=== PATIENT | male | born 1980 | race Two or more races ===

== ENCOUNTER 2018-06-20 17:27 | Emergency (ER) | payer BC ==
[~2018-06-20 17:27] MED LIST: AUG500 PO; CEP500 PO; FAM20 PO; HYDR-653 PO; IBU600 PO; LOR5 PO; LOR5/325 PO
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
[2018-06-20] MEDS ORDERED: NS(*) 0.9% 1000 ML BAG 1,000 ML IV ONE (17:52)
[2018-06-20] MEDS ORDERED: KETOROLAC 30 MG/ML VIAL IVP ONE (17:55)
[2018-06-20 18:18] LABS: PLATELET COUNT, AUTOMATED 208 K/uL (150-450)
[2018-06-20] MEDS ORDERED: IOPAMIDOL 76% 150 ML INFUS BTL 150 ML ONE (18:34)
--- NOTE | 2018-06-20 19:00 | RADIOLOGY IMAGING REPORT ---
FACILITY: [facility] - [place] PATIENT NAME: Ronn Ruby : 1980 MR: [id number] V: [id number] EXAM DATE: ORDERING PHYSICIAN: MARIANO BENITEZ [place]CHNOLOG[place]: [place] [facility] [place]n [place] : 1980 Visit/Account:[id number] Date of Sevice: 06/20/2018 EXAMINATION: CT abdomen and pelvis with IV contrast HISTORY: Left-sided abdominal pain. TECHNIQUE: Axial CT images of the abdomen and pelvis were obtained with IV contrast, with coronal a nd sagittal 2D reconstructed images. One of the following dose optimization techniques was utilized in the performance of this exam: Autom ated exposure control; adjustment of the mA and/or kV according to the patient's size; or use of an i terative reconstruction technique. Specific details can be referenced in the facility's radiology C T exam operational policy. Contrast: 75 mL of IV [id number]. COMPARISON: None. FINDINGS: Liver: Negative. Gallbladder and bile ducts: Negative. Spleen: Negative. Pancreas: Negative. Adrenal glands: Negative. Kidneys: Negative. No hydronephrosis or urinary calculi. Bowel and peritoneum: The small bowel and colon are normal in caliber, without evidence of obstructi on or any focal inflammatory process. Normal appendix. No free fluid or free intraperitoneal air. Pelvic structures: Negative. Lymph node assessment: Negative. Vessels: Negative. Musculoskeletal: Negative. Body wall: Negative. Lung bases: Negative. IMPRESSION: No CT evidence of acute intra-abdominal pathology. No specific source of abdominal pain is identified . Report Dictated By: Diogo Gordon MD at 06/20/2018 6:51 PM Report E-Signed By: Diogo Gordon MD at 06/20/2018 6:56 PM WSN:[id number]
[2018-06-20 19:30] VITALS: BP 112/79
[2018-06-20] MEDS ORDERED: HYDR-385 PO (19:39)
[2018-06-20] MEDS ORDERED: KET10 PO (19:39)
== END 2018-06-20 19:54 | disposition home or self-care (01) ==
LOC: ER 18:12
DX: S30.1XXA Contusion of abdominal wall, initial encounter (principal)
CPT/HCPCS: 74177; 81001; 83690; 85025; 85651; 86140; 96361; 96374; 99284; J1885; J7030; Q9967; 82040; 82247; 82310; 82374; 82435; 82565; 82947; 84075; 84132; 84155; 84295; 84450; 84460; 84520